=== PATIENT | male | born 1990 ===

== ENCOUNTER → 2020-03-28 | Outpatient (CLI) | payer OTHER ==
[~2020-03-28] MED LIST: AMLO2.5T2 PO; DOXE10CA PO; ERGO500027 PO; ESCITALOPRAM OXA5 MG PO; MELO7.5T5 PO; OMEG1CAP27 PO; OMEP20CA16 PO; PROP60CA36 PO; glucosamine PO; vitamin d3
--- NOTE | 2020-03-28 08:41 | PDOC1 ---
INITIAL PAIN CONSULT DATE OF SERVICE: DOS: DATE: 03/28/20 TIME: 08:33 CHIEF COMPLAINT: Chief Complaint: Bilateral shoulder joint pain left greater than right HISTORY OF PRESENT ILLNESS: 30-year-old male presents with history of pain bilateral shoulder since 2013 after active duty injury in [place] patient reports has had significant pain in the bilateral shoulders now worse on the left than the right but initially worse on the right side. Patient reports the pain is getting worse with activity even without weight bearing activities but more significantly with weightbearing activities. Patient reports it is becoming more noticeable in the anterior shoulders with some numbness and tingling in the shoulder as well as some radiation of the bilateral biceps. Patient describes pain as sharp throbbing shooting tingling with numbness intermittent intensity better with resting does not generally awaken her from sleep at night but over the past few weeks it has about 4 times a night patient reports does not affect his bowel or bladder control does affect his body to walk but his ability to do daily activities is becoming more more difficult. Patient has had trigger point injections in the past physical therapy currently and exercising currently which does help but only to a mild extent. Patient reports he tried Mobic Flexeril ibuprofen none of which have decreased the pain significantly. Patient rates his disability rating 0-10 10 being the worst is a 7 with family home responsibilities occupation 3 with recreation social activity 8 with sexual behavior to his self-care and 5 with life support activities. Patient did have MRI scans which are pending at time of this dictation. Patient reports difficulty for him to lift his arms above the level of the shoulder especially with any repetitive motions especially on the left side. Patient reports no loss of motor function but significant fatigability with repetitive motions especially on the left side PAST MEDICAL HISTORY: PMH: Hypertension, arthritis, esophageal reflux, anxiety and depression PREVIOUS SURGERIES: Past Surgical Hx: Right hand surgery, right inguinal herniorrhaphy CURRENT MEDICATIONS: Current Meds: Active Scripts Medications Dose Route/Sig Max Daily Dose Days Date Category Fish Oil 1,000 Mg Softgel ([place]-3 Fatty Acids/Fish Oil) 1 Each Capsule 1 Each PO DAILY 03/28/20 Reported [vitamin d3] 03/28/20 Reported Vitamin D2 (Ergocalciferol (Vitamin D2)) 1,250 Mcg Capsule 1,250 Mcg PO WEEKLY 03/28/20 Reported Omeprazole 20 Mg Capsule. Unknown Dose PO DAILY 03/28/20 Reported Lexapro (Escitalopram Oxalate) 5 Mg Tablet Unknown Dose PO DAILY 03/28/20 Reported [glucosamine] PO 03/28/20 Reported Mobic (Meloxicam) 7.5 Mg Tablet Unknown Dose PO DAILY 03/28/20 Reported Norvasc (Amlodipine Besylate) 2.5 Mg Tablet Unknown Dose PO DAILY 03/28/20 Reported Doxepin Hcl 10 Mg Capsule Unknown Dose PO HS 03/28/20 Reported Inderal La (Propranolol Hcl) 60 Mg Cap.sa.24h Unknown Dose PO TID 03/28/20 Reported ALLERGIES; Allergies: Uncoded Allergies: anasthisia (Allergy, Intermediate, Rash, 03/28/20) FAMILY HISTORY: Family Hx: Diabetes, cancers, heart disease SOCIAL HISTORY: Social Hx: Patient does not drink alcohol does not smoke not use any illegal illicit or recreational drugs is he is active duty currently in [facility] REVIEW OF SYSTEMS: ROS: Positive for those items mentioned in history of present illness, all systems are reviewed, otherwise negative, is complete full and well-documented on patient's chart PHYSICAL EXAM: VS: Blood pressure is 157/90 pulse 67 respirations 18 temperature 97.8 F height is 70 inches weight is 263 pounds PE: PHYSICAL EXAMINATION: GENERAL: The patient is awake, alert, oriented, appropriate, very pleasant demeanor HEENT: Shows normocephalic, atraumatic. Extraocular movements are intact and symmetrical. Oral cavity: Mucous membranes moist and pink. Dentition is intact. NECK: Shows anterior throat supple without palpable lymphadenopathy noted. Swallow reflex symmetrical. CHEST: Shows normal on inspection. Breath sounds are clear bilaterally, no rales rhonchi or wheezes auscultated. HEART: Shows S1, S2 clear. No murmurs auscultated. ABDOMEN: Soft, nontender, nondistended. No palpable organomegaly is noted. No rebound or guarding demonstrated. BACK: Shows spine grossly in the midline. Normal-appearing cervical lordotic curvature. Cervical spine shows good rotation motion both laterally greater than 45 degrees closer to 90 degrees well is full extension full forward flexion without significant increase in pain. Posterior cervical musculature shows symmetrical on inspection on palpation some moderate tenderness diffusely only diffusely throughout the upper middle lower distribution the paraspinous musculature without radiation without trigger points. There is slightly increased thoracic kyphosis, some minor flattening of the lumbar lordotic curvature. Lumbar paraspinous muscles show symmetrical on inspection, on palpation shows some moderate tenderness diffusely throughout the upper, middle and lower distribution of the paraspinous muscles bilaterally but without specific trigger points, without radiation of pain. The patient has good rotational motion of the lumbar spine, both laterally as well as extension and flexion without significant difficulty. No tenderness over the spinous processes, sacrum or sacroiliac regions. EXTREMITIES: Upper extremities show deep tendon reflexes 2+ in the biceps and triceps tendons. Motor exam is 5 on a scale of 5 with right catalog specialist strength, biceps and triceps flexion and 5/5 on the left. Peripheral pulses are 2+ radial. No peripheral edema is noted bilaterally. Upper extremities are warm and dry to touch, equal in color and appearance. Shoulder shrug is strong and intact without loss of strength on resistance as is abduction of the shoulder 90 degrees bilaterally with some moderate tenderness in the left lateral and anterior deltoid but without loss of strength. SKIN: Shows warm and dry, good turgor. No edema. No sores, rashes or bruising throughout. IMPRESSION: Impression: 50-year-old male with approximate 6-year history of bilateral shoulder pain following injury active duty MRI scan shoulders pending Hypertension Arthritis Plan: Options were discussed with the patient, including conservative medical management physical therapies interventional techniques. He like to pursue interventional techniques as he has had some success with this in the past. We will preauthorize patient for bilateral intra-articular shoulder joint injections (glenohumeral) patient will continue with physical therapy exercises as currently. Patient will return to the clinic once preauthorization is obtained we will plan on bilateral intra-articular shoulder joint injections at that time. DAISY CONNORS MD Mar 28, 2020 08:40
== END ==
LOC: PNCL 07:48
PROVIDERS: ATTEND Anesthesiology
DX: M25.511 Pain in right shoulder (principal); M25.512 Pain in left shoulder; I10 Essential (primary) hypertension; M19.90 Unspecified osteoarthritis, unspecified site; Z88.8 Allergy status to other drugs, medicaments and biological substances; Z79.899 Other long term (current) drug therapy; Z83.3 Family history of diabetes mellitus
CPT/HCPCS: G0463